=== PATIENT | male | born 1965 | race Caucasian/White ===

== ENCOUNTER 2018-03-28 11:17 | Emergency (ER) | payer OTHER ==
[2018-03-28 11:21] VITALS: BP 143/87; PULSE 78; RESP 20; TEMP 98.1
[2018-03-28] MEDS ORDERED: KETOROLAC 60 MG/2 ML VIAL IM STA (11:32)
--- NOTE | 2018-03-28 11:36 | ED ---
General Adult HPI - General Chief complaint: Back Pain/Injury Stated complaint: Back injury/IHS Time Seen by Provider: 03/28/18 11:23 Source: patient, RN notes reviewed Mode of arrival: ambulatory Limitations: no limitations - History of Present Illness Initial comments: Patient 52-year-old male presents to the emergency room today with chief complaint of increased lower back pain. 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 He states that he had increased pain in his lower back. He does admit to a history of low back pain in the past and states that this is similar. He states it is worse with any bending, turning, twisting. Patient states has not taken anything for the pain. He states he had to drive back from work. He states injury occurred approximately an hour and a half ago. Patient states that his work recommended him coming here to the emergency room. Denies any bowel or bladder incontinence retention. Denies any saddle anesthesia. Patient denies any recent fever, chills, shortness of breath, chest pain, back pain, abdominal pain , nausea or vomiting, numbness or tingling, headaches or visual changes, or any other complaints. - Related Data Home Medications Medication Instructions Recorded Confirmed Aspirin 81 mg PO DAILY 10/10/15 10/10/15 HYDROcodone/APAP 10-325MG [[place] 1 tab PO Q6H PRN 10/10/15 10/11/15 10-325] Ibuprofen [Motrin] 800 mg PO Q8H PRN 10/10/15 10/10/15 Multivitamin [Men's Multi-Vitamin] 1 each PO DAILY 10/10/15 10/10/15 [place]-3 Fatty Acids/Fish Oil [Fish 400 units PO DAILY 10/10/15 10/10/15 Oil 1,000 mg Softgel] Previous Rx's Medication Instructions Recorded Hydrocodone/Acetaminophen [[place] 1 each PO Q6H PRN #40 tab 10/11/15 10-325] Cyclobenzaprine [Flexeril] 10 mg PO TID #20 tab 03/28/18 Ibuprofen [Motrin] 800 mg PO Q6HR #30 tab 03/28/18 Allergies Allergy/AdvReac Type Severity Reaction Status Date / Time Sulfa (Sulfonamide Allergy Rash/Hives Verified 03/28/18 11:21 Antibiotics) Review of Systems ROS Statement: Those systems with pertinent positive or pertinent negative responses have been documented in the HPI. ROS Other: All systems not noted in ROS Statement are negative. Past Medical History Past Medical History: No Reported History Additional Past Medical History / Comment(s): C/O of R shoulder pain from injury at work. History of Any Multi-Drug Resistant Organisms: None Reported Additional Past Surgical History / Comment(s): Colonoscopy Past Anesthesia/Blood Transfusion Reactions: No Reported Reaction Past Psychological History: No Psychological Hx Reported Smoking Status: Current every day smoker Past Alcohol Use History: Occasional Past Drug Use History: None Reported - Past Family History Mother Additional Family Medical History / Comment(s): Mother from complications from MRSA. General Exam - General Exam Comments Initial Comments: General: The patient is awake and alert, in no distress, and does not appear acutely ill. Eye: There is normal conjunctiva bilaterally. No signs of icterus. Ears, nose, mouth and throat: There are moist mucous membranes and no oral lesions. Neck: The neck is supple. Cardiovascular: There is a regular rate and rhythm. No murmur, rub or gallop is appreciated. Respiratory: Lungs are clear to auscultation, respirations are non-labored, breath sounds are equal. No wheezes, stridor, rales, or rhonchi. Musculoskeletal: Normal appearance of the cervical, thoracic and lumbar spine. No step-off or deformity. Mild tenderness lower lumbar from L4 to S1. Increased paravertebral tenderness on the left side of lumbar spine. Pain reproduced with movements and turning and bending. Sensation intact. Strength 5 /5. Pulses equal bilaterally 2+. Neurological: A&O x 3. CN II-XII intact, There are no obvious motor or sensory deficits. Coordination appears grossly intact. Speech is normal. Skin: Skin is warm and dry and no rashes or lesions are noted. Psychiatric: Cooperative, appropriate mood & affect, normal judgment. Limitations: no limitations Course Vital Signs 03/28/18 11:20 Temperature 98.1 F Pulse Rate 78 Respiratory 20 Rate Blood Pressure 143/87 O2 Sat by Pulse 98 Oximetry Medical Decision Making - Medical Decision Making Patient's x-rays reviewed in the short term changes along with spondylolisthesis of L4-L5. Results were discussed with patient. Patient will be continued on anti-inflammatories and muscle laxer. He is advised follow-up the family doctor or return to emergency room symptoms increase worsen. Disposition Clinical Impression: Acute low back pain Disposition: HOME SELF-CARE Condition: Good Instructions: Acute Low Back Pain (ED) Additional Instructions: Please use medication as discussed. Please follow-up with family doctor in the next 2 days of symptoms have not improved. Please return to emergency room if the symptoms increase or worsen or for any other concerns. Prescriptions: Cyclobenzaprine [Flexeril] 10 mg PO TID #20 tab Ibuprofen [Motrin] 800 mg PO Q6HR #30 tab Is patient prescribed a controlled substance at d/c from ED?: No Referrals: Collin James MD [Primary Care Provider] - 1-2 days Time of Disposition: 12:20
--- NOTE | 2018-03-28 11:54 | XR ---
EXAMINATION TYPE: XR lumbar spine 2 or 3V , 3 VIEWS DATE OF EXAM ORDERED: 03/28/2018 HISTORY: Pain. COMPARISON: Previous study dated 10/28/2012. FINDINGS: There is a grade 2 spondylolisthesis of L4 on L5. Based on this examination I cannot be ce rtain whether there is a spondylolysis or not. There did not appear to be one on the previous study. Alignment is otherwise maintained. There is disc space loss at T11-12 and T12-L1. This hypertrophic s pondylosis present at T12-L1. The pedicles are intact. IMPRESSION: 1. NO ACUTE OSSEOUS LESION. 2. DEGENERATIVE CHANGE. 3. GRADE 2 SPONDYLOLISTHESIS OF L4 ON L5.
[2018-03-28] MEDS ORDERED: CYCLOBENZAPRINE 10MG STARTER 3 TAB BTL PO STA (12:19)
[2018-03-28] MEDS ORDERED: MORPHINE SULFATE 4 MG/ML SYRINGE IM STA (12:19)
== END 2018-03-28 12:47 | disposition home or self-care (01) ==
LOC: EC 11:17
DX: M54.5 Low back pain (principal); M43.16 Spondylolisthesis, lumbar region; F17.200 Nicotine dependence, unspecified, uncomplicated; Z79.82 Long term (current) use of aspirin; Z88.2 Allergy status to sulfonamides
CPT/HCPCS: 72100; 99283; 96372 ×2; J2270; J1885

== ENCOUNTER → 2018-03-31 | Outpatient (CLI) | payer OTHER ==
--- NOTE | 2018-03-31 13:59 | MR ---
EXAMINATION TYPE: MR lumbar spine wo con DATE OF EXAM: 03/31/2018 COMPARISON: Prior MRI lumbar spine May 31, 2011. Lumbar spine x-ray March 28, 2018. HISTORY: strain of muscle, fascia and tendon of low back per order. Back pain into left buttocks and thigh for 3 days after pulling injury per patient. TECHNIQUE: Multiplanar, multisequence imaging of the lumbar spine is performed without IV contrast. FINDINGS: Sagittal images of the lumbar spine show vertebral body heights to appear satisfactory. The re are some scattered prominent Schmorl nodes seen. Grade 1 anterolisthesis of L4 on L5 on plain film s is less well appreciated are prominent on MRI. Multilevel disc desiccation is present with progress ion from prior MRI. There is fairly moderate disc space narrowing with vacuum disc phenomenon L4-L5 l evel redemonstrated. There is mild to moderate disc space narrowing L5-S1 level redemonstrated. Poste rior disc herniations T12-L1 and L4-L5 level are redemonstrated on sagittal images. Annular tear with increased signal posteriorly at T12-L1 level is noted. The conus medullaris remains stable in posit ion ending at inferior T12 level. Some mild multilevel anterior spurring and heterogeneous endplate c hanges are redemonstrated. Axial images at the T12-L1 level show broad disc bulge with left paracentral disc protrusion componen t effacing anterior thecal sac on axial image 28. Bilateral neural foramina are patent. No significan t change from prior. Axial images at L1-L2 and L2-L3 levels remain within normal limits. Axial images at the L3-L4 level redemonstrate mild facet degenerative changes and ligamentum flavum h ypertrophy but spinal canal is preserved and bilateral neural foramina remain patent. Axial images at the L4-L5 level show spondylolisthesis and moderate facet degenerative changes bilate rally. There is broad disc bulge with central disc protrusion component. Spinal canal is preserved. T here is moderate right greater than left bilateral neural foraminal narrowing some encroachment along the anterior-inferior aspect of both L4 nerves is difficult to exclude on sagittal images, right mor e prominent than left. Axial images at the L5-S1 level show mild facet degenerative changes bilaterally. Spinal canal is pre served. Bilateral neural foramina are patent. IMPRESSION: Fairly stable multilevel degenerative changes in the lumbar spine, most prominent finding s are redemonstrated at the T12-L1 and L4-L5 levels.
== END ==
LOC: RADMRIMAIN 12:27
PROVIDERS: ATTEND Emergency Medicine
DX: M47.816 Spondylosis without myelopathy or radiculopathy, lumbar region (principal)
CPT/HCPCS: 72148

== ENCOUNTER → 2020-05-24 | Outpatient (CLI) | payer OTHER ==
--- NOTE | 2020-05-25 07:06 | MR ---
EXAMINATION TYPE: MR lumbar spine wo con DATE OF EXAM: 05/24/2020 COMPARISON: Same day CT lumbar spine. MRI lumbar spine March 31, 2018. HISTORY: LBP, RLE pain and numbness x 5 years. TECHNIQUE: Multiplanar, multisequence imaging of the lumbar spine is performed without IV contrast. FINDINGS: Sagittal images of the lumbar spine show vertebral body heights to remain satisfactory. The re are view scattered tiny Schmorl nodes seen. I will use same counting sequences as prior MRI. Grade 1 anterolisthesis of L4 on L5 is stable. Multilevel disc desiccation is redemonstrated . There is fa irly moderate disc space narrowing with vacuum disc phenomenon L4-L5 level and anterior disc herniati on redemonstrated. There is stable mild disc space narrowing L5-S1 level redemonstrated. Posterior di sc herniations T12-L1 and L4-L5 level are redemonstrated on sagittal images. Annular tear with increa sed signal posteriorly at T12-L1 level is redemonstrated. The conus medullaris remains stable in pos ition ending at inferior T12 level. Some moderate multilevel anterior spurring and heterogeneous endp late changes are redemonstrated. Axial images at the T12-L1 level show stable broad-based left paracentral spur disc complex effacing anterior thecal sac on axial image 28. Bilateral neural foramina are patent. Mild facet degenerative changes and ligamentum flavum hypertrophy. No significant change from prior. Axial images at L1-L2 and L2-L3 levels remain within normal limits. Axial images at the L3-L4 level redemonstrate mild to moderate facet degenerative changes and ligamen christa flavum hypertrophy but spinal canal is preserved and bilateral neural foramina remain patent. Axial images at the L4-L5 level show spondylolisthesis and moderate facet degenerative changes bilate rally. Bilateral pars defect noted seen better on CT. There is moderate broad disc bulge with central disc protrusion component. Spinal canal is preserved as there is increased epidural fat. There is mo derate right greater than left bilateral neural foraminal narrowing with encroachment along the anter ior-inferior aspect of both L4 nerves. Present right greater than left seen best sagittal image 11 on the right and 4 and 3 on the left respectively. Findings more prominent from prior MRI. Axial images at the L5-S1 level show mild facet degenerative changes bilaterally. Sacralized right L5 segment noted on CT. Spinal canal is preserved. Bilateral neural foramina are patent. IMPRESSION: Multilevel degenerative changes as detailed above with findings most prominent at labeled T12-L1 and L4-L5 levels. Some interval progression L4-L5 levels with worsening encroachment on exiti ng bilateral L4 nerves are thought present.
== END | disposition home or self-care (01) ==
LOC: RADMRIMAIN 17:12
PROVIDERS: ATTEND Orthopaedic Surgery
DX: M47.815 Spondylosis without myelopathy or radiculopathy, thoracolumbar region (principal); M47.816 Spondylosis without myelopathy or radiculopathy, lumbar region; R93.7 Abnormal findings on diagnostic imaging of other parts of musculoskeletal system
CPT/HCPCS: 72148

== ENCOUNTER → 2020-05-24 | Outpatient (CLI) | payer OTHER ==
--- NOTE | 2020-05-25 07:10 | CT ---
EXAMINATION TYPE: CT lumbar spine wo con DATE OF EXAM: 05/24/2020 5:34 PM COMPARISON: Same day MRI lumbar spine. HISTORY: chronic low back pain CT DLP: 1491.6 mGycm Automated exposure control for dose reduction was used. Unenhanced CT of the lumbar spine was performed. Bone and soft tissue window settings are submitted as well as coronal and sagittal reconstructions. Will use same counting sequences MRI. There is sacralized right L5 segment noted. There is grade 1 an terolisthesis L4 on L5. There is moderate disc space narrowing with vacuum disc phenomenon and disc h erniation L4-L5 level. There is [id number] disc space narrowing with posterior spur disc comple x effacing anterior thecal sac at T12-L1 level. Mild to moderate multilevel anterior spurring is pres ent. Bilateral pars defect at labeled L4 level noted. Axial images confirm left paracentral spur disc complex effacing ventral lateral thecal sac on image 26 at T12-L1 level. Axial images show spondylolisthesis with moderate broad disc bulge and central disc protrusion at L4- L5 level on image 67. Encroachment on the exiting right L4 nerve sagittal image 24 and left L4 nerve sagittal image 34 correlates with same day MRI. Visualized liver is low dense relative to spleen consistent with diffuse fatty infiltration. There is [id number] calcified plaque of the distal abdominal aorta extending into the iliac branch vess els. IMPRESSION: Multilevel degenerative changes greatest at labeled T12-L1 and L4-L5 levels as detailed a bony. Findings correlate with same day MRI.
== END | disposition home or self-care (01) ==
LOC: RADCTMAIN 17:06
PROVIDERS: ATTEND Orthopaedic Surgery
DX: M47.815 Spondylosis without myelopathy or radiculopathy, thoracolumbar region (principal); M47.816 Spondylosis without myelopathy or radiculopathy, lumbar region; Z88.2 Allergy status to sulfonamides
CPT/HCPCS: 72131

== ENCOUNTER 2020-12-19 15:00 | Inpatient (IN) | payer OTHER ==
[2020-12-19] MEDS ORDERED: hydrALAZINE HCL 20 MG/ML 1 ML VIAL IVP STA ×2 (15:53→17:13)
[2020-12-19] MEDS ORDERED: ACETAMINOPHEN TAB 500 MG TAB PO STA (15:54)
--- NOTE | 2020-12-19 15:56 | ED ---
General Adult HPI - General Chief complaint: Headache Stated complaint: headache Time Seen by Provider: 12/19/20 15:15 Source: patient, EMS, RN notes reviewed, old records reviewed Mode of arrival: EMS Limitations: no limitations - History of Present Illness Initial comments: This is a 55-year-old male who presents emergency Department stating that he's had a headache for 3 days. adds that he's had a headache starting in October which was seen his primary medical care doctor for and she was encouraging him to take blood pressure medications he was on 1 but it had some side effects so he stopped. Patient states the headache started this time 3 days ago and it was quite severe. Patient denies any nausea vomiting. Patient denies any numbness weakness. Patient denies any trauma. Patient denies chest pain palpitations difficulty breathing or shortness of breath. She states she does have high blood pressure high cholesterol smokes and has a strong family history of heart disease. Patient states he has not had any chest pain today or any other day recently. - Related Data Home Medications Medication Instructions Recorded Confirmed Aspirin 81 mg PO DAILY 10/10/15 12/19/20 Losartan Potassium [Cozaar] 50 mg PO DAILY 12/19/20 12/19/20 Metoprolol Tartrate [Lopressor] 25 mg PO DAILY 12/19/20 12/19/20 Turmeric Root Extract [Turmeric] 500 mg PO DAILY 12/19/20 12/19/20 Allergies Allergy/AdvReac Type Severity Reaction Status Date / Time Sulfa (Sulfonamide Allergy Rash/Hives Verified 12/19/20 17:45 Antibiotics) Review of Systems ROS Statement: Those systems with pertinent positive or pertinent negative responses have been documented in the HPI. ROS Other: All systems not noted in ROS Statement are negative. Past Medical History Past Medical History: Hypertension Additional Past Medical History / Comment(s): C/O of R shoulder pain from injury at work. History of Any Multi-Drug Resistant Organisms: None Reported Additional Past Surgical History / Comment(s): Colonoscopy Past Anesthesia/Blood Transfusion Reactions: No Reported Reaction Past Psychological History: No Psychological Hx Reported Smoking Status: Current every day smoker Past Alcohol Use History: Occasional Past Drug Use History: None Reported - Past Family History Mother Additional Family Medical History / Comment(s): Mother from complications from MRSA. General Exam - General Exam Comments Initial Comments: GENERAL: Patient is well-developed and well-nourished. Patient is nontoxic and well- hydrated and is in mild distress. ENT: Neck is soft and supple. No significant lymphadenopathy is noted. Oropharynx is clear. Moist mucous membranes. Neck has full range of motion without eliciting any pain. There is no thyroid enlargement and no masses were felt. EYES: The sclera were anicteric and conjunctiva were pink and moist. Extraocular movements were intact and pupils were equal round and reactive to light. Eyelids were unremarkable. PULMONARY: Unlabored respirations. Good breath sounds bilaterally. No audible rales rhonc hi or wheezing was noted. CARDIOVASCULAR: There is a regular rate and rhythm without any murmurs gallops or rubs. ABDOMEN: Soft and nontender with normal bowel sounds. SKIN: Skin is clear with no lesions or rashes and otherwise unremarkable. NEUROLOGIC: Patient is alert and oriented x3. Cranial nerves II through XII are grossly intact. Motor and sensory are also intact. Normal speech, volume and content. Symmetrical smile. MUSCULOSKELETAL: Normal extremities with adequate strength and full range of motion. No lower extremity swelling or edema. No calf tenderness. LYMPHATICS: No significant lymphadenopathy is noted PSYCHIATRIC: Normal psychiatric evaluation. Limitations: no limitations Course Vital Signs 12/19/20 12/19/20 12/19/20 15:12 17:26 17:49 Temperature 97.8 F Pulse Rate 68 80 78 Respiratory 18 18 18 Rate Blood Pressure 171/101 144/77 161/93 O2 Sat by Pulse 99 99 100 Oximetry 12/19/20 12/19/20 12/19/20 18:17 19:15 19:30 Temperature 98.2 F Pulse Rate 87 82 83 Respiratory 18 18 16 Rate Blood Pressure 146/83 151/83 169/86 O2 Sat by Pulse 99 97 96 Oximetry 12/19/20 12/19/20 19:45 20:00 Temperature Pulse Rate 80 88 Respiratory 16 18 Rate Blood Pressure 174/87 180/97 O2 Sat by Pulse 98 99 Oximetry Medical Decision Making - Medical Decision Making EKG shows normal sinus rhythm at 63 bpm OK interval 240 QRS is 84 QT interval 396 QTC is 405. EKG shows no ST segment elevation or depression. Chest x-ray showed no acute abnormality. CT of the brain showed no acute abnormality. I went back into the room to reevaluate the patient's headache was much better his blood pressure was vastly improved. I was discussing possible follow-up as an outpatient when the told me that yesterday he had some hemianopsia in the right eye and it lasted about an hour and it eventually returned to normal and has been normal since. Patient did not initially talked to me about this hemianopsia. After patient was admitted patient started complaining about peripheral vision loss in the right side did a CTA and called a code stroke. I spoke to the neurointerventionalist he agreed no TPA at this time - Lab Data Result diagrams: 12/19/20 16:06 12/19/20 16:06 Lab Results 12/19/20 12/19/20 12/19/20 Range/Units 16:06 16:06 16:06 WBC 8.8 (3.8-10.6) k/uL RBC 5.10 (4.30-5.90) m/uL Hgb 15.4 (13.0-17.5) gm/dL Hct 46.1 (39.0-53.0) % MCV 90.5 (80.0-100.0) fL MCH 30.3 (25.0-35.0) pg MCHC 33.5 (31.0-37.0) g/dL RDW 14.3 (11.5-15.5) % Plt Count 160 (150-450) k/uL MPV 9.9 Neutrophils % 72 % Lymphocytes % 20 % Monocytes % 5 % Eosinophils % 1 % Basophils % 1 % Neutrophils # 6.3 (1.3-7.7) k/uL Lymphocytes # 1.7 (1.0-4.8) k/uL Monocytes # 0.4 (0-1.0) k/uL Eosinophils # 0.1 (0-0.7) k/uL Basophils # 0.1 (0-0.2) k/uL PT 9.9 (9.0-12.0) sec INR 0.9 (<1.2) APTT 20.2 L (22.0-30.0) sec Sodium 137 (137-145) mmol/L Potassium 3.6 (3.5-5.1) mmol/L Chloride 105 (98-107) mmol/L Carbon Dioxide 24 (22-30) mmol/L Anion Gap 8 mmol/L BUN 13 (9-20) mg/dL Creatinine 1.00 (0.66-1.25) mg/dL Est GFR (CKD-EPI)AfAm >90 (>60 ml/min/1.73 sqM) Est GFR (CKD-EPI)NonAf 85 (>60 ml/min/1.73 sqM) Glucose 103 H (74-99) mg/dL Calcium 9.4 (8.4-10.2) mg/dL Magnesium 2.1 (1.6-2.3) mg/dL Total Bilirubin 0.6 (0.2-1.3) mg/dL AST 34 (17-59) U/L ALT 25 (4-49) U/L Alkaline Phosphatase 93 (38-126) U/L Troponin I (0.000-0.034) ng/mL Total Protein 6.6 (6.3-8.2) g/dL Albumin 4.1 (3.5-5.0) g/dL 12/19/20 Range/Units 16:06 WBC (3.8-10.6) k/uL RBC (4.30-5.90) m/uL Hgb (13.0-17.5) gm/dL Hct (39.0-53.0) % MCV (80.0-100.0) fL MCH (25.0-35.0) pg MCHC (31.0-37.0) g/dL RDW (11.5-15.5) % Plt Count (150-450) k/uL MPV Neutrophils % % Lymphocytes % % Monocytes % % Eosinophils % % Basophils % % Neutrophils # (1.3-7.7) k/uL Lymphocytes # (1.0-4.8) k/uL Monocytes # (0-1.0) k/uL Eosinophils # (0-0.7) k/uL Basophils # (0-0.2) k/uL PT (9.0-12.0) sec INR (<1.2) APTT (22.0-30.0) sec Sodium (137-145) mmol/L Potassium (3.5-5.1) mmol/L Chloride (98-107) mmol/L Carbon Dioxide (22-30) mmol/L Anion Gap mmol/L BUN (9-20) mg/dL Creatinine (0.66-1.25) mg/dL Est GFR (CKD-EPI)AfAm (>60 ml/min/1.73 sqM) Est GFR (CKD-EPI)NonAf (>60 ml/min/1.73 sqM) Glucose (74-99) mg/dL Calcium (8.4-10.2) mg/dL Magnesium (1.6-2.3) mg/dL Total Bilirubin (0.2-1.3) mg/dL AST (17-59) U/L ALT (4-49) U/L Alkaline Phosphatase (38-126) U/L Troponin I <0.012 (0.000-0.034) ng/mL Total Protein (6.3-8.2) g/dL Albumin (3.5-5.0) g/dL Critical Care Time Critical Care Time: Yes Total Critical Care Time: 35 Disposition Clinical Impression: Hypertensive urgency, CVA (cerebral vascular accident) Disposition: ADMITTED IP TO THIS [facility] Time of Disposition: 18:24
[2020-12-19 16:14] LABS: Basophils # (A) 0.1 k/uL (0-0.2); Basophils % (A) 1 %; Eosinophils # (A) 0.1 k/uL (0-0.7); Eosinophils % (A) 1 %; HCT 46.1 % (39.0-53.0); HGB 15.4 gm/dL (13.0-17.5); Lymphocytes # (A) 1.7 k/uL (1.0-4.8); Lymphocytes % (A) 20 %; MCH 30.3 pg (25.0-35.0); MCHC 33.5 g/dL (31.0-37.0); MCV 90.5 fL (80.0-100.0); Mean Platelet Volume 9.9; Monocytes # (A) 0.4 k/uL (0-1.0); Monocytes % (A) 5 %; Neutrophils # (A) 6.3 k/uL (1.3-7.7); Neutrophils % (A) 72 %; Platelet Count 160 k/uL (150-450); RDW 14.3 % (11.5-15.5); WBC 8.8 k/uL (3.8-10.6)
--- NOTE | 2020-12-19 16:18 | CT ---
EXAMINATION TYPE: CT brain wo con DATE OF EXAM: 12/19/2020 COMPARISON: 10/28/12 HISTORY: Acute headache CT DLP: 1107.[address] of the brain was performed. The ventricles, basal cisterns and sulci overlying the cerebral convexities demonstrate mild enlargem ent. There is no evidence for intracranial hemorrhage or sulcal effacement. There is decreased attenuation about the periventricular white matter and deep white matter of both c erebral hemispheres, compatible with chronic small vessel ischemia. Differential diagnosis does inclu de demyelination. No mass effects are seen.No midline shift. Osseous calvarium is intact. If symptoms persist consider MRI. IMPRESSION: 1. Age related atrophic and chronic small vessel ischemic change without acute intracranial process s een at this time.
--- NOTE | 2020-12-19 16:25 | XR ---
EXAMINATION TYPE: XR chest 2V DATE OF EXAM: 12/19/2020 COMPARISON: 11/07/12 HISTORY: Shortness of breath TECHNIQUE: Frontal and lateral views of the chest are obtained. FINDINGS: Scattered senescent parenchymal changes noted. Hyperinflation compatible with COPD. No evidence for infiltrate. No evidence for atelectasis. Heart size is stable. Mediastinal structures are stable and grossly unremarkable. No evidence for hilar prominence. Degenerative changes dorsal spine. IMPRESSION: 1. No evidence for acute pulmonary disease.
[2020-12-19 16:26] LABS: ALT 25 U/L (4-49); AST 34 U/L (17-59); African American GFR (CKD) >90 (>60 ml/min/1.73 sqM); Albumin 4.1 g/dL (3.5-5.0); Alkaline Phosphatase 93 U/L (38-126); Anion Gap 8 mmol/L; Blood Urea Nitrogen 13 mg/dL (9-20); Calcium 9.4 mg/dL (8.4-10.2); Carbon Dioxide 24 mmol/L (22-30); Chloride 105 mmol/L (98-107); Glucose 103 mg/dL (74-99); Magnesium 2.1 mg/dL (1.6-2.3); Non-African American GFR(CKD) 85 (>60 ml/min/1.73 sqM); Potassium 3.6 mmol/L (3.5-5.1); Sodium 137 mmol/L (137-145); Total Bilirubin 0.6 mg/dL (0.2-1.3); Total Protein 6.6 g/dL (6.3-8.2)
[2020-12-19 16:53] LABS: INR 0.9 (<1.2); Prothrombin Time 9.9 sec (9.0-12.0)
[2020-12-19 16:54] LABS: Partial Thromboplastin Time 20.2 sec (22.0-30.0)
[2020-12-19] MEDS ORDERED: KETOROLAC 15 MG/ML 1 ML VIAL IVP STA (17:13)
[2020-12-19] MEDS ORDERED: ASPIRIN 325 MG TAB PO STA (18:29)
--- NOTE | 2020-12-19 19:51 | CT ---
EXAMINATION TYPE: CODE STROKE: CTA head neck DATE OF EXAM: 12/19/2020 HISTORY: Peripheral vision loss. COMPARISON: Same-day CT. CT DLP: 545.6 mGycm. Automated Exposure Control for Dose Reduction was Utilized. TECHNIQUE: CTA scan of the head and neck is performed with IV Contrast, patient injected with 65 mL of Isovue 370, axial images are obtained, coronal and sagittal reformatted images are reviewed. Three -D reconstructed images are created on an independent workstation and reviewed. FINDINGS: There is normal three-vessel branching of the aorta. There is notable atherosclerotic plaque within the right vertebral artery with moderate 50-70% stenosis of the V1 through V3 segments. Otherwise no evidence of additional significant stenosis, dissection or aneurysm seen in the bilateral common martinez tid, cervical internal carotid and left vertebral arteries. There is no evidence of high-grade stenosis, dissection or aneurysm in the intracranial internal martinez tid arteries, anterior, middle and posterior cerebral arteries as well as in the imaged vertebral and basilar arteries. The communicating arteries are unremarkable. IMPRESSION: No acute abnormality of the CTA head/neck. Moderate stenosis of the right vertebral artery.
[2020-12-20] MEDS: METOPROLOL TARTRATE 25 MG TAB PO SCH (08:51)
[2020-12-20] MEDS: ASPIRIN 325 MG TAB PO SCH (08:51)
[2020-12-20] MEDS: LOSARTAN 50 MG TAB PO SCH (08:51)
--- NOTE | 2020-12-20 11:23 | P.CNNES ---
History of Present Illness Consult date: 12/20/20 Requesting physician: Tu Flanagan Reason for Consult: TIA History of Present Illness: Patient is a 55-year-old male came to the hospital by ambulance yesterday at 3 PM for cephalalgia, and right visual disturbance. 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 He came back home and was having dinner when he started having headache pointing to the bifrontal region. Over the next 3-4 hours, it kept on getting worse and by night it was pounding headache. It would get much worse if he would cough. Next morning when he woke up on Friday, he noticed visual loss on the right side. He has to turn his head to the right to see anything on the right. The visual loss improved in an hour, but has persistent some peripheral visual deficit on the right side. He could not work and stayed home on Friday, and the following day Friday. He had a constant throbbing headache in the bifrontal region. Patient denied any nausea vomiting although felt very light sensitive and mild noise sensitive. He rated his headache "off the chart". As the symptoms persisted, he called the ambul ance, and was brought to ER. As per EMS flow sheet, patient has started blood pressure medication 2 days ago. Patient started having headache, blurred vision since starting the medication. He is increasingly sleeping. Patient describes headache as being across front region of the head. He was alert and oriented 4. Denied chest pain difficulty breathing or trauma. Patient's blood pressure was 177/103 in the left arm and 186/105 in the right arm. Patient denied any focal numbness tingling weakness slurred speech facial droop or any problem with the balance. Vital signs on arrival blood pressure 171/101, pulse rate 68, temperature 97.8. Patient's blood pressure has remained high running around 174/82. CT head showed age-related atrophic and chronic small vessel ischemic changes without acute intracranial process. CTA of head and neck showed no acute abnormality of the CTA head and neck. Chest x-ray showed no evidence of acute pulmonary disease. EKG sinus rhythm, nonspecific T-wave abnormality. Blood test shows normal CBC, PT/PTT, CMP troponin and negative Torrez virus. Patient takes aspirin 81 mg, metoprolol, Cozaar 50 mg and turmeric. MRI of the lumbar spine showed multilevel degenerative changes, with findings most prominent at T12-L1 and L4 5 levels. Some interval progression L4 5 levels with worsening encroachment on the exiting bilateral L4 nerves are thought present. Smokes 1/2 PD for 45 years. Occasional alcohol. No THC. Patient states that at this time his headaches has much improved, about 2/10, although when he coughs it goes up to 6/10. Nothing like what he experienced in the past 2 days. Patient states that he has history of migraines that he occasionally and would be quite intense headache but never like this, never associated with visual disturbance. He has to clear his throat sometimes, but denies any postnasal dripping. No fever or chills. Patient states that he was started on a blood pressure medication 3-4 weeks ago, which produced diarrhea for couple days. He does not remember the name of that medication, but then was switched to this new medication which he feels is working well. Review of Systems As described above in detail. All other review of systems unremarkable. Patient states he has history of occasional migraines. Denies any fever or chills. 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 He has other family members including his mother with same condition. Patient denies any chest pain shortness of breath, wheezing or cough. Past Medical History Past Medical History: Hypertension Additional Past Medical History / Comment(s): C/O of R shoulder pain from injury at work. History of Any Multi-Drug Resistant Organisms: None Reported Additional Past Surgical History / Comment(s): Colonoscopy Past Anesthesia/Blood Transfusion Reactions: No Reported Reaction Past Psychological History: No Psychological Hx Reported Smoking Status: Current every day smoker Past Alcohol Use History: Occasional Additional Past Alcohol Use History / Comment(s): Smokes 1/2 PPD x 20 yrs. Past Drug Use History: None Reported - Past Family History Mother Additional Family Medical History / Comment(s): Mother from complications from MRSA. Medications and Allergies Home Medications Medication Instructions Recorded Confirmed Type Aspirin 81 mg PO DAILY 10/10/15 12/19/20 History Losartan Potassium [Cozaar] 50 mg PO DAILY 12/19/20 12/19/20 History Metoprolol Tartrate [Lopressor] 25 mg PO DAILY 12/19/20 12/19/20 History Turmeric Root Extract [Turmeric] 500 mg PO DAILY 12/19/20 12/19/20 History Allergies Allergy/AdvReac Type Severity Reaction Status Date / Time Sulfa (Sulfonamide Allergy Rash/Hives Verified 12/19/20 17:45 Antibiotics) Physical Examination - Vital Signs Vital Signs: Vital Signs Temp Pulse Pulse Resp BP BP Pulse Ox 12/20/20 08:00 77 16 174/82 96 12/20/20 04:00 78 18 165/94 94 L 12/19/20 23:23 97.9 F 92 18 157/95 98 12/19/20 23:03 97.7 F 92 18 157/95 98 12/19/20 22:30 92 16 153/81 96 12/19/20 21:30 98 18 166/98 97 12/19/20 20:30 90 18 175/95 98 12/19/20 20:00 88 18 180/97 99 12/19/20 19:45 80 16 174/87 98 12/19/20 19:30 98.2 F 83 16 169/86 96 12/19/20 19:15 82 18 151/83 97 12/19/20 18:17 87 18 146/83 99 12/19/20 17:49 78 18 161/93 100 12/19/20 17:26 80 18 144/77 99 12/19/20 15:12 97.8 F 68 18 171/101 99 Intake and Output 12/19/20 12/20/20 12/20/20 22:59 06:59 14:59 Intake Total 930 240 Balance 930 240 Intake: Oral 930 240 Other: Voiding Method Toilet # Voids 1 Weight 102.058 kg 98.9 kg Patient is a middle aged male, in no acute distress. Patient is alert awake oriented to time place and person. Speech and language functions are normal. Attention, concentration and fund of knowledge is adequate. On cranial examination, pupils are equal, round and reacting to light, visual ge revealed peripheral homonymous visual field deficit on the right side on confrontation. The visual field deficit involves very peripherally in the outer visual field but is homonymous involving both eyes. His extraocular muscles are intact with no nystagmus. Face is symmetric, tongue protrudes to the midline. Palatal elevation and sensation normal, hearing and shoulder shrug normal, facial sensation normal. On muscle strength testing, there is no pronator drift and the strength is normal in arms and legs distally and proximally. Deep tendon reflexes are symmetric, 2 in the upper limbs, 1+ at the knees and 1 ankles and plantars downgoing. Sensory to touch is equal with no neglect. Cerebellar function showed no ataxia for [id number] testing. No dysdiadochokinesia. Tone and bulk of muscles normal. Gait normal. On general examination, there is no carotid bruit or murmur, S1-S2 audible. Abdomen is soft nontender. Chest is clear. Peripheral pulses are present. No edema. Results - Laboratory Findings CBC and BMP: 12/19/20 16:06 12/19/20 16:06 Abnormal Lab Findings: Abnormal Labs 12/19/20 12/19/20 16:06 16:06 APTT 20.2 L Glucose 103 H Assessment and Plan Assessment: * Stroke TIA, presenting with severe cephalgia involving bifrontal region and right peripheral visual field deficit (homonymous). Complex migraine also in the differential. Pseudotumor less likely. * Accelerated hypertension * Tobacco use Plan: * Patient still has visual field deficit on the right side. Patient will undergo MRI of the brain to evaluate for an acute stroke. * CTA of head and neck showed no acute abnormality of the CTA head and neck. No aneurysm reported. * Patient will undergo 2-D echo with bubble study to rule out PFO. * Await fasting a.m. lipid panel and hemoglobin A1c. * Optimize control of blood pressure. * Further management based upon above test results. * Patient has been on aspirin 81 mg daily at home. The dose has been increased to 325 mg. In the MRI is positive, then we will consider placing on dual antiplatelet medications. * Recommended tobacco cessation. * Telemetry monitoring so far showing sinus rhythm, with no arrhythmia.
[2020-12-20 13:30] LABS: Chol/HDL Ratio 5.24; LDL Cholesterol,Calculated 128.8 mg/dL (0.0-131.0); VLDL Calculation 28.2 mg/dL (5.00-40.00)
[2020-12-20] MEDS: HEPARIN SODIUM,PORCINE/PF 5,000 UNIT/0.5 ML SYRINGE SQ SCH ×2 (15:50→23:05)
[2020-12-20] MEDS: CLOPIDOGREL 75 MG TAB PO SCH (15:51)
--- NOTE | 2020-12-20 17:02 | ECHOF ---
Referral Reason:CVA MEASUREMENTS -------- HEIGHT: 170.2 cm WEIGHT: 98.9 kg BP: IVSd: 1.1 cm (0.6 - 1.1) LVIDd: 5.3 cm (3.9 - 5.3) LVPWd: 1.4 cm (0.6 - 1.1) IVSs: 1.6 cm LVIDs: 3.4 cm LVPWs: 2.2 cm LA Diam: 4.8 cm (2.7 - 3.8) LAESV Index (A-L): 24.43 ml/m Ao Diam: 3.8 cm (2.0 - 3.7) AV Cusp: 1.3 cm (1.5 - 2.6) LA Diam: 4.3 cm (2.7 - 3.8) MV EXCURSION: 21.475 mm (> 18.000) MV EF SLOPE: 72 mm/s (70 - 150) EPSS: 0.7 cm RAP: 5.00 mmHg RVSP: 11.63 mmHg FINDINGS -------- Sinus rhythm. This was a technically good study. LV size, wall thickness and systolic function are normal, with an EF greater than 55%. The left chico tricular size is normal. The right ventricle is normal in size. Mild spontaneous echo contrast present in the left atrium. The right atrial size is normal. Agitated Saline study is negative, no crossing at atrial level or right to left shunt noted. The aortic valve is trileaflet, and appears structurally normal. No aortic stenosis or regurgitation. Mild mitral regurgitation is present. Mild tricuspid regurgitation present. Right ventricular systolic pressure is normal at < 35 mmHg. There is no pulmonic regurgitation present. The aortic root size is normal. There is no pericardial effusion. CONCLUSIONS -------- 1. LV size, wall thickness and systolic function are normal, with an EF greater than 55%. 2. The left ventricular size is normal. 3. The right ventricle is normal in size. 4. Mild spontaneous echo contrast present in the left atrium. 5. The right atrial size is normal. 6. Agitated Saline study is negative, no crossing at atrial level or right to left shunt noted. 7. The aortic valve is trileaflet, and appears structurally normal. No aortic stenosis or regurgitati on. 8. Mild mitral regurgitation is present. 9. Mild tricuspid regurgitation present. 10. The aortic root size is normal. 11. There is no pericardial effusion. SOIL FERTILITY EXTENSION SPECIALIST: Marina Tee RDCS
[2020-12-20 21:49] LABS: Hemoglobin A1C 5.8 % (4.0-6.0)
[2020-12-20] MEDS ORDERED: hydrALAZINE HCL 25 MG TAB PO SCH (22:00)
[2020-12-20 23:10] VITALS: TEMP 98
--- NOTE | 2020-12-20 23:14 | P.HPIM ---
History of Present Illness H&P Date: 12/20/20 Chief Complaint: Headache Patient is a 55-year-old male with a known history of hypertension presents to ER by ambulance with complaints of headache and right eye visual disturbance. Patient states that on Friday he was started having headache while having dinner. Headache is mainly in the frontal region. Headache gets worse with coughing. Patient went to see his primary care physician and was started on blood pressure medications. On Friday again patient started having increased headache and elevated blood pressure and also right eye visual disturbance with loss of peripheral vision. Patient otherwise denies any nausea or vomiting. No chest pain or shortness of breath. Due to ongoing symptoms and not getting better she called ambulance and was brought to the hospital. On admission blood pressure was 171/101 and pulse 68, respiration 18 and pulse ox 99% on room air. CT head showed age-related atrophic and chronic small vessel ischemic change without acute intracranial process. Chest x-ray showed no acute cardiopulmonary process. EKG showed normal sinus rhythm CT angiogram of the head and neck showed no acute abnormality of the CTA head and neck. Moderate stenosis of the right vertebral artery. Laboratory data showed WBC 8.8 hemoglobin 15.4 and platelets 160 Sodium 137 potassium 3.6 chloride 105 BUN 13 and creatinine 1.0, troponin x1 - liver enzymes are not elevated and A1c level is 5.8 LDL 128 and coronavirus PCR not detected. Review of Systems Constitutional: Patient denies any fever or chills . No generalized weakness or weight loss. Abdomen: Patient denied nausea vomiting and diarrhea and abdominal pain. Cardiovascular: Patient denies any chest pain or short of breath no palpitations. Respiratory: patient denied any cough or sputum production. No shortness of breath Neurologic: Patient denied any numbness or tingling. Patient does have headache and right eye peripheral vision loss.. Musculoskeletal: Patient denies any complaints of joint swelling or deformity. Skin: Negative Psychiatric: Negative Endocrine: No heat or cold intolerance. No recent weight gain. Genitourinary: No dysuria or hematuria. All other 14 point ROS negative except the above Past Medical History Past Medical History: Hypertension Additional Past Medical History / Comment(s): C/O of R shoulder pain from injury at work. History of Any Multi-Drug Resistant Organisms: None Reported Additional Past Surgical History / Comment(s): Colonoscopy Past Anesthesia/Blood Transfusion Reactions: No Reported Reaction Past Psychological History: No Psychological Hx Reported Smoking Status: Current every day smoker Past Alcohol Use History: Occasional Additional Past Alcohol Use History / Comment(s): Smokes 1/2 PPD x 20 yrs. Past Drug Use History: None Reported - Past Family History Mother Additional Family Medical History / Comment(s): Mother from complications from MRSA. Medications and Allergies Home Medications Medication Instructions Recorded Confirmed Type Aspirin 81 mg PO DAILY 10/10/15 12/19/20 History Losartan Potassium [Cozaar] 50 mg PO DAILY 12/19/20 12/19/20 History Metoprolol Tartrate [Lopressor] 25 mg PO DAILY 12/19/20 12/19/20 History Turmeric Root Extract [Turmeric] 500 mg PO DAILY 12/19/20 12/19/20 History Allergies Allergy/AdvReac Type Severity Reaction Status Date / Time Sulfa (Sulfonamide Allergy Rash/Hives Verified 12/19/20 17:45 Antibiotics) Physical Exam Vitals: Vital Signs Temp Pulse Pulse Resp BP BP Pulse Ox 12/20/20 08:00 77 16 174/82 96 12/20/20 04:00 78 18 165/94 94 L 12/19/20 23:23 97.9 F 92 18 157/95 98 12/19/20 23:03 97.7 F 92 18 157/95 98 12/19/20 22:30 92 16 153/81 96 12/19/20 21:30 98 18 166/98 97 12/19/20 20:30 90 18 175/95 98 12/19/20 20:00 88 18 180/97 99 12/19/20 19:45 80 16 174/87 98 12/19/20 19:30 98.2 F 83 16 169/86 96 12/19/20 19:15 82 18 151/83 97 12/19/20 18:17 87 18 146/83 99 12/19/20 17:49 78 18 161/93 100 12/19/20 17:26 80 18 144/77 99 12/19/20 15:12 97.8 F 68 18 171/101 99 Intake and Output 12/19/20 12/20/20 12/20/20 22:59 06:59 14:59 Intake Total 930 240 Balance 930 240 Intake: Oral 930 240 Other: Voiding Method Toilet # Voids 1 Weight 102.058 kg 98.9 kg PHYSICAL EXAMINATION: Patient is lying in the bed comfortably, no acute distress, awake alert and oriented.. HEENT: Normocephalic. Neck is supple. Pupils reactive. Nostrils clear. Oral cavity is moist. Neck reveals no JVD, carotid bruits, or thyromegaly. CHEST EXAMINATION: Trachea is central. Symmetrical expansion. Lung ge clear to auscultation and percussion. CARDIAC: Normal S1, S2 with no gallops. No murmurs ABDOMEN: Soft. Bowel sounds normal. No organomegaly. No abdominal bruits. Extremities: reveal no edema. No clubbing or cyanosis Neurologically awake, alert, oriented x3 with well-coordinated movements. Right eye peripheral visual deficit. Muscle strength 5 out of 5 in all 4 extremities. Skin: No rash or skin lesions. Psychiatric: Coperative. Nonsuicidal Musculoskeletal: No joint swelling or deformity. Normal range of motion. Results CBC & Chem 7: 12/19/20 16:06 12/19/20 16:06 Labs: Abnormal Lab Results - Last 24 Hours (Table) 12/19/20 12/19/20 Range/Units 16:06 16:06 APTT 20.2 L (22.0-30.0) sec Glucose 103 H (74-99) mg/dL Thrombosis Risk Factor Assmnt - DVT/VTE Prophylaxis DVT/VTE Prophylaxis: Pharmacologic Prophylaxis ordered Assessment and Plan Assessment: Severe frontal headache and right eye peripheral vision deficit. Possible acute CVA versus TIA. Accelerated essential hypertension Hypertension started on blood pressure medications about 2 days ago. Ongoing nicotine addiction Occasional alcohol use DVT prophylaxis Heparin subcu Plan: Patient will be continued on telemetry monitoring. Currently on losartan and metoprolol. Will add Norvasc and titrate blood pressure medications. Patient was seen by neurology. Continue with aspirin and started on Plavix. Patient underwent work-up including CT head, CT angiogram of the head and neck. MRI of the brain was ordered. Continue with neurochecks every follow-up closely. Time with Patient: Greater than 30
[2020-12-20] MEDS ORDERED: amLODIPine 5 MG TAB PO SCH (23:15)
--- NOTE | 2020-12-21 00:27 | MR ---
EXAMINATION TYPE: MR brain wo con DATE OF EXAM: 12/20/2020 COMPARISON: None HISTORY: CVA, sever headache, right eye vision issue. Multiplanar multiecho imaging of the brain without contrast. Ventricles have normal size. There is no mass effect nor midline shift. There is no evidence of intra cranial hemorrhage. There is some gyriform increased signal on the diffusion images in the medial lef t occipital lobe. This measures overall 2.5 cm in diameter. There is increased signal in this locatio n also on the T2 and FLAIR images. Sella turcica appears normal. Corpus callosum appears normal. The brainstem is intact. There is no evidence of orbital mass. Optic chiasm appears normal. IMPRESSION: Increased signal in the medial left occipital lobe suggestive of acute or subacute ischemic infarct. No mass effect.
[2020-12-21] MEDS: ASPIRIN 325 MG TAB PO SCH (07:55)
[2020-12-21] MEDS: HEPARIN SODIUM,PORCINE/PF 5,000 UNIT/0.5 ML SYRINGE SQ SCH (07:55)
[2020-12-21] MEDS: LOSARTAN 50 MG TAB PO SCH (07:55)
[2020-12-21] MEDS: METOPROLOL TARTRATE 25 MG TAB PO SCH (07:55)
[2020-12-21] MEDS: CLOPIDOGREL 75 MG TAB PO SCH (07:55)
[2020-12-21 08:03] VITALS: RESP 16
[2020-12-21 12:29] VITALS: BP 127/78; PULSE 74
[2020-12-21] MEDS ORDERED: ATORVASTATIN 40 MG TAB PO SCH (21:00)
[2020-12-22] MEDS ORDERED: ASPIRIN 81 MG PO SCH (09:00)
--- NOTE | 2020-12-22 09:51 | P.PN ---
Subjective Progress Note Date: 12/21/20 Patient was seen for follow-up. Patient states he is ready to go. Offers no new complaints. Vision is improved. Objective - Vital Signs Vital signs: Vital Signs Temp 98.0 F 12/21/20 03:40 Pulse 74 12/21/20 12:28 Resp 16 12/21/20 08:00 BP 127/78 12/21/20 12:28 Pulse Ox 98 12/21/20 08:00 Intake & Output 12/20/20 12/21/20 12/21/20 18:59 06:59 18:59 Intake Total 960 10 960 Balance 960 10 960 Weight 98.8 kg Intake: IV 10 0.9 10 Oral 960 960 Other: Voiding Method Toilet # Voids 3 1 - Exam Examination only significant for very mild peripheral visual loss, right lower lateral side. Rest of the examination is normal. - Labs CBC & Chem 7: 12/19/20 16:06 12/19/20 16:06 Assessment and Plan Assessment: * Acute stroke left occipital lobe, manifesting with right peripheral visual loss. * Accelerated hypertension * Hyperlipidemia * Tobacco use Plan: * Patient still has visual field deficit on the right side. Patient will undergo MRI of the brain to evaluate for an acute stroke. * CTA of head and neck showed moderate stenosis of the right vertebral artery. There is notable atherosclerotic plaque within the right vertebral artery with moderate 50-70% stenosis of the V1 through V3 segments. No high-grade stenosis of the carotid system. No aneurysm reported. * 2-D echo with bubble study revealed normal left-ventricular size and wall thickness, with EF greater than 55%. Mild spontaneous echo contrast present in the left atrium. Agitated saline documented no shunt. * Lipid panel with cholesterol 194, LDL 128, HDL 28 and triglycerides 141. Patient will be started on Lipitor 40 mg. * Hemoglobin A1c 5.8. * Optimize control of blood pressure. * Continue dual antiplatelet medication aspirin 81 mg and Plavix 75 mg, due to symptomatic right vertebral artery stenosis. * Recommended tobacco cessation. * Telemetry monitoring so far showing sinus rhythm, with no arrhythmia. * Patient is a semitruck trailer tank truck driver. He was recommended to follow up with yard crane operator for clearance before he can drive semitruck. * Also recommend patient follow up with neurologist.
== END 2020-12-21 15:21 | disposition home or self-care (01) | DRG 304 ==
LOC: EC 15:00 → 3SCARD 18:25
PROVIDERS: ADMIT Internal Medicine; ATTEND Internal Medicine
DX: I16.0 Hypertensive urgency (principal); I63.89 Other cerebral infarction; I10 Essential (primary) hypertension; E78.00 Pure hypercholesterolemia, unspecified; E78.5 Hyperlipidemia, unspecified; I65.01 Occlusion and stenosis of right vertebral artery; G43.809 Other migraine, not intractable, without status migrainosus; H53.40 Unspecified visual field defects; H54.61 Unqualified visual loss, right eye, normal vision left eye; F17.210 Nicotine dependence, cigarettes, uncomplicated; M25.511 Pain in right shoulder; Z20.822 Contact with and (suspected) exposure to COVID-19; Z88.2 Allergy status to sulfonamides; Z79.82 Long term (current) use of aspirin; Z79.899 Other long term (current) drug therapy; Z71.6 Tobacco abuse counseling
CPT/HCPCS: 36415; 70450; 70496; 70498; 70551; 71046; 80053; 80061; 83036; 83735; 84484; 85025; 85610; 85730; 87635; 93005; 93306; 96374; 96375; 96376; 99291

== ENCOUNTER 2022-07-12 11:54 | Day surgery (SDC) | payer OTHER ==
[2022-07-09 13:26] VITALS: BMI 35.2
[~2022-07-12 11:54] MED LIST: LACTATED RINGERS 1,000 ML IV SCH
[2022-07-12 13:29] VITALS: TEMP 96.7
[2022-07-12] MEDS ORDERED: LIDOCAINE 2% INJ 20 MG/ML (2 ML VIAL) ONE (14:49)
[2022-07-12] MEDS ORDERED: PROPOFOL 10 MG/ML 20 ML VIAL IV ONE (14:49)
--- NOTE | 2022-07-12 15:02 | P.PCN ---
Date of Procedure: 07/12/22 Procedure(s) Performed: BRIEF HISTORY: Patient is a 56-year-old pleasant male scheduled for an elective colonoscopy as a part of screening for colon cancer. PROCEDURE PERFORMED: Colonoscopy. PREOPERATIVE DIAGNOSIS: Screening for colon cancer. IV sedation per Anesthesia. PROCEDURE: After informed consent was obtained, the patient, was brought into the endoscopy unit. IV sedation was administered by Anesthesia under continuous monitoring. Digital rectal examination was normal. Initially the Olympus CF-160 flexible video colonoscope was then inserted in the rectum, gradually advanced into the cecum without any difficulty. Careful examination was performed as the scope was gradually being withdrawn. Ileocecal valve and the appendiceal orifice were visualized and appeared normal. Prep was fair. There was some sticky still noted the colon there was thoroughly irrigated.. Mucosa of the cecum, ascending colon, transverse colon, descending colon, sigmoid colon, and rectum appeared normal. Retroflexion was performed in the rectum and no lesions were seen. The patient tolerated the procedure well. IMPRESSION: Normal-appearing colon from rectum to cecum with no runs of colorectal neoplasia. RECOMMENDATIONS: Findings of this examination were discussed with the patient well as his family. He was advised to have a repeat screening colonoscopy in 10 years..
[2022-07-12 15:49] VITALS: BP 119/68; PULSE 68; RESP 20
== END 2022-07-12 15:38 ==
LOC: ORWHC2ENDO 11:54
PROVIDERS: ATTEND Internal Medicine Gastroenterology
DX: Z12.11 Encounter for screening for malignant neoplasm of colon (principal); I10 Essential (primary) hypertension; F17.200 Nicotine dependence, unspecified, uncomplicated; M19.90 Unspecified osteoarthritis, unspecified site; Z86.73 Personal history of transient ischemic attack (TIA), and cerebral infarction without residual deficits; Z79.899 Other long term (current) drug therapy; Z79.82 Long term (current) use of aspirin; Z79.02 Long term (current) use of antithrombotics/antiplatelets; Z98.890 Other specified postprocedural states; Z88.2 Allergy status to sulfonamides
CPT/HCPCS: 45378